=== PATIENT | female | born 1960 | race Caucasian/White ===

== ENCOUNTER 2019-04-25 11:16 | Inpatient (IN) | payer OTHER ==
[~2019-04-25] VITALS: Ht 170.2 cm; Wt 62.6 kg
--- NOTE | 2019-04-25 11:16 | NUR ---
"BIB [facility] FROM A CLINIC,CHEST PAIN/SOB AND ELEVATED BLOOD SUGAR(550)" PT AAOX4, -SOB, NAD NOTED, VSS, PENDING MD ISRAEL
[2019-04-25] MEDS ORDERED: IV NS 0.9% 1,000 ML BAG IV ONE (11:30)
[2019-04-25 11:44] LABS: BASOPHILS # (AUTO) 0.1 /CMM (0.0-0.2); BASOPHILS % (AUTO) 1.4 % (0.0-2.0); HEMATOCRIT 33 % (33-45); HEMOGLOBIN 10.7 g/dL (11.5-14.8); LYMPHOCYTES # (AUTO) 0.8 /CMM (0.8-4.8); LYMPHOCYTES % (AUTO) 8.3 % (20.0-44.0); MEAN CORPUSCULAR HGB CONC 33 g/dl (31.0-36.0); MEAN CORPUSCULAR VOLUME 98 fL (82-100); MONOCYTES # (AUTO) 0.5 /CMM (0.1-1.30); MONOCYTES % (AUTO) 5.5 % (2.0-12.0); NEUTROPHILS # (AUTO) 8.2 /CMM (1.8-8.9); NEUTROPHILS % (AUTO) 83.8 % (43.0-81.0); PLATELET COUNT (AUTO) 236 /CMM (150-450); RED BLOOD CELL COUNT(AUTO) 3.33 MIL/uL (4.0-5.2); WHITE BLOOD COUNT (AUTO) 9.8 K/uL (4.3-11.0)
[2019-04-25 11:50] LABS: APPEARANCE,URINE Clear (CLEAR); BILIRUBIN,URINE Negative (NEGATIVE); BLOOD, URINE Negative Ery/uL (NEGATIVE); COLOR,URINE Yellow (YELLOW); KETONES,URINE Trace (NEGATIVE); LEUKOCYTE ESTERASE ,URINE Small (NEGATIVE); NITRITE, URINE Negative (NEGATIVE); PROTEIN,URINE >=300 mg/dl (NEGATIVE); UGLUCOSE 500 MG/DL mg/dL (NEGATIVE); UROBILINOGEN,URINE 0.2 EU/dL (0.2)
[2019-04-25 11:51] LABS: BACTERIA,URINE Few /HPF (None Seen); HYALINE CASTS, URINE Few /LPF (None Seen); SQUAMOUS EPITHELIAL CELL,UR Few /HPF (None Seen)
[2019-04-25 11:57] LABS: CALCIUM, SERUM 9.1 mg/dL (8.5-10.1); CREATININE 7.1 mg/dL (0.6-1.3); POTASSIUM 4.7 mmol/L (3.5-5.1)
[2019-04-25 12:00] LABS: BILIRUBIN,DIRECT 0.1 mg/dL (0.0-0.2); BILIRUBIN,TOTAL 0.3 mg/dL (0.2-1.0); TOTAL PROTEIN, SERUM 7.1 g/dL (6.4-8.2)
[2019-04-25] MEDS ORDERED: INSULIN REGULAR, HUMAN 100 UNIT/ML 10 ML VIAL SQ ONE (12:30)
[2019-04-25] MEDS ORDERED: INSULIN REGULAR, HUMAN 100 UNIT/ML 10 ML VIAL ONE (12:48)
[2019-04-25] MEDS ORDERED: ASPIRIN 325 MG TABLET PO ONE (13:00)
[2019-04-25] MEDS ORDERED: NITROGLYCERIN PACKET 1 GM PACKET TD ONE (13:00)
[2019-04-25] MEDS ORDERED: LORA10TA7 PO (13:08)
[2019-04-25] MEDS ORDERED: CALC667C6 PO (13:08)
[2019-04-25] MEDS ORDERED: PANT40TA4 PO (13:08)
[2019-04-25] MEDS ORDERED: SEVE800T8 PO (13:08)
[2019-04-25] MEDS ORDERED: CHOL100040 PO (13:08)
[2019-04-25] MEDS ORDERED: AMLO5TAB4 PO (13:08)
[2019-04-25] MEDS ORDERED: ALBU18HF2 IH (13:08)
[2019-04-25] MEDS ORDERED: CLON0.1T PO (13:08)
[2019-04-25] MEDS ORDERED: MONT10TA22 PO (13:08)
[2019-04-25] MEDS ORDERED: FLUO40CA8 PO (13:08)
[2019-04-25] MEDS ORDERED: CARV25TA2 PO (13:08)
[2019-04-25] MEDS ORDERED: ATOR20TA PO (13:08)
[2019-04-25] MEDS ORDERED: ASPIRIN 325 MG TABLET ONE (13:11)
[2019-04-25] MEDS ORDERED: NITROGLYCERIN PACKET 1 GM PACKET ONE (13:11)
--- NOTE | 2019-04-25 14:14 | NUR ---
PT IS GOING TO 307-2.
--- NOTE | 2019-04-25 14:26 | NUR ---
REPORT GIVEN TO LARISA MCDERMOTT FOR CHARLENE.
[2019-04-25] MEDS ORDERED: IV 1/2NS 1000 ML 1,000 ML IV PRN (14:33)
--- NOTE | 2019-04-25 14:33 | NUR ---
MD TO MD IN PROGRESS.
[2019-04-25] MEDS ORDERED: MAG HYDROX/AL HYDROX/SIMETH 30 ML UDC PO PRN (15:00)
[2019-04-25] MEDS ORDERED: MONTELUKAST SODIUM (10MG) 10 MG TABLET PO PRN (15:00)
[2019-04-25] MEDS ORDERED: MAGNESIUM HYDROXIDE 30 ML UDC PO PRN (15:00)
[2019-04-25] MEDS ORDERED: ACETAMINOPHEN 325 MG TABLET PO PRN (15:00)
[2019-04-25] MEDS ORDERED: Z GUARD REMEDY 2 OZ OINT TP PRN (15:00)
[2019-04-25] MEDS ORDERED: ONDANSETRON HCL/PF 4 MG/2 ML VIAL IVP PRN (15:00)
[2019-04-25] MEDS ORDERED: ZOLPIDEM TARTRATE 5 MG TABLET PO PRN (15:00)
--- NOTE | 2019-04-25 15:19 | NUR ---
RT NOTE EKG ORDERED AT 1433 PT NOT IN ROOM
--- NOTE | 2019-04-25 15:30 | NUR ---
WIND PROJECT MANAGER NOTES RECEIVED PT FROM E.R. STAFF, PT IS AWAKE, ALERT AND ORIENTED, ABLE TO WALK TO BED WITH STEADY GAIT, STILL WITH COMPLAINT OF CHEST PAIN 01/16, NOT IN DISTRESS, ASSISTED TO BED, MADE COMFORTABLE, ROOM SET UP ORIENTATION PROVIDED TO PT, VERBALIZED UNDERSTANDING, CALL LIGHT PLACED WITHIN EASY REACH, ADMITTING ORDERS RECEIVED FROM DR. ZUÑIGA.
[2019-04-25] MEDS: CALCIUM ACETATE 667 MG TABLET PO SCH (16:21)
[2019-04-25] MEDS: HYDROCODONE/APAP 5/325MG 1 EACH TABLET PO PRN ×2 (16:21→20:57)
[2019-04-25] MEDS: CHOLECALCIFEROL 1,000 UNIT TABLET (VIT D3) PO SCH (16:21)
[2019-04-25] MEDS: SEVELAMER CARBONATE 800 MG TABLET PO SCH (16:21)
[2019-04-25] MEDS ORDERED: DEXTROSE 50%-WATER 50 ML DISP.SYRIN IV PRN (16:30)
[2019-04-25] MEDS ORDERED: *INSULIN REGULAR(HUMULIN R)HUM 100 UNIT/ML VIAL SQ PRN (16:30)
[2019-04-25] MEDS: BLOOD SUGAR DIAGNOSTIC 1 EACH STRIP IN SCH ×2 (17:15→21:43)
--- NOTE | 2019-04-25 18:06 | NUR ---
SENIOR STAFF PSYCHOLOGIST NOTES PT IN BED, ALERT AND ORIENTED, PAIN MEDS GIVEN FOR PAIN MANAGEMENT, NOT IN DISTRESS, ATE DINNER, WITH GOOD APPETITE, PLEASANT AND COOPERATIVE WITH CARE, SEEN AND EXAMINED BY DR. ZUÑIGA, PLAN OF CARE DISCUSSED WITH PT. VERBALIZED UNDERSTANDING, CALL LIGHT WITHIN REACH, ALL NEEDS ATTENDED.
[2019-04-25] MEDS: INSULIN REGULAR, HUMAN 100 UNIT/ML 3 ML VIAL SQ PRN (18:27)
--- NOTE | 2019-04-25 19:15 | NUR ---
SOLE STITCHER HAND NOTES RECEIVED RESTING COMFORTABLY ON BED,A/O X4,BREATHING NORMAL,O2 IN USED TO KEEP O2 SAT ABOVE 90%.IVF NS AT 75ML/HR RATE IN PROGRESS ON RIGHT FORE ARM,SITE PATENT.NOTED [facility] FOR HD ACCESS,STRONG BRUIT NOTED.SR -70 ON TELE MONITOR.APPEARS ANXIOUS,ASKING FOR ANXIETY MEDS,NO ORDERS.WILL FOLLOW UP WITH .KACEY NOT DUE YET, JUST MEDICATED THREE HOURS AGO.CALL LIGHT IN REACH,NEEDS ANTICIPATED.
[2019-04-25] MEDS ORDERED: ALBUTEROL FS 2.5 MG/0.5 ML VIAL.NEB NEB PRN (19:30)
[2019-04-25 20:00] VITALS: BP 141/60
--- NOTE | 2019-04-25 20:57 | NUR ---
CHIEF DIGITAL OFFICER NOTES HAVING CHEST PAIN,7'10 ON PAIN SCALE.MEDICATED WITH NORCO 5/325MG,1 TAB PO ORDERED
--- NOTE | 2019-04-25 21:30 | NUR ---
BATTERY TEST ENGINEER NOTES ACCU-CHECK BLOOD SUGAR CHECK 82MG/DL,NO INSULIN COVERAGE.SNACKS PROVIDED AT BEDSIDE WITH APPLE JUICE
[2019-04-25] MEDS: ATORVASTATIN 10 MG TABLET PO SCH (21:44)
[2019-04-26] VITALS (8 sets, daily range): BP systolic 138–170; BP diastolic 65–71
--- NOTE | 2019-04-26 01:00 | NUR ---
COP BREAKER NOTES SLEEPING,PAIN MANAGEMENT EFFECTIVE.
--- NOTE | 2019-04-26 03:43 | NUR ---
MDS COORDINATOR NOTES AWAKE,FEELING ANXIOUS DUE TO HER ROOM MATE WHO'S MOANING IN PAIN WELL.MEDICATED WITH NORCO 5/325MG,1 TAB PO ORDERED.
[2019-04-26] MEDS: HYDROCODONE/APAP 5/325MG 1 EACH TABLET PO PRN ×2 (03:50→19:13)
[2019-04-26] MEDS: BLOOD SUGAR DIAGNOSTIC 1 EACH STRIP IN SCH ×4 (05:23→21:08)
--- NOTE | 2019-04-26 05:35 | NUR ---
STRATIGRAPHER NOTES ACCU-CHECK BLOOD SUGAR CHECK 125,NO INSULIN COVERAGE.
--- NOTE | 2019-04-26 06:11 | NUR ---
UPSET OPERATOR NOTES ON BED SLEEPING,PAIN MANAGEMENT EFFECTIVE,BP HELD FOR A MOMENT,SYSTOLIC BP ELEVATED.FOR HD TODAY.AMBULATORY,CALL LIGHT IN REACH,NEEDS ATTENDED.WILL ENDORSE TO DAY NURSE FOR CHARLENE.
--- NOTE | 2019-04-26 07:10 | NUR ---
MS RN NOTES PATIENT IN BED, ALERT ORIENTED X 4. NO ACUTE DISTRESS NOTED, BREATHING UNLABORED. NO SOB NOTED. IV ACCESS PATENT AND INTACT, NO REDNESS OR SWELLING NOTED. SAFETY MEASURES IN PLACE. CALL LIGHT WITHIN REACH. WILL CONTINUE TO MONITOR ACCORDINGLY.
[2019-04-26 07:17] LABS: BASOPHILS # (AUTO) 0.1 /CMM (0.0-0.2); BASOPHILS % (AUTO) 0.9 % (0.0-2.0); EOSINOPHILS % (AUTO) 4.1 % (0.0-6.0); HEMATOCRIT 26 % (33-45); HEMOGLOBIN 8.7 g/dL (11.5-14.8); LYMPHOCYTES # (AUTO) 1.5 /CMM (0.8-4.8); LYMPHOCYTES % (AUTO) 18.3 % (20.0-44.0); MEAN CORPUSCULAR HGB CONC 34 g/dl (31.0-36.0); MEAN CORPUSCULAR VOLUME 95 fL (82-100); MONOCYTES # (AUTO) 0.7 /CMM (0.1-1.30); MONOCYTES % (AUTO) 8.8 % (2.0-12.0); NEUTROPHILS # (AUTO) 5.6 /CMM (1.8-8.9); NEUTROPHILS % (AUTO) 67.9 % (43.0-81.0); PLATELET COUNT (AUTO) 228 /CMM (150-450); RED BLOOD CELL COUNT(AUTO) 2.74 MIL/uL (4.0-5.2); WHITE BLOOD COUNT (AUTO) 8.3 K/uL (4.3-11.0)
[2019-04-26 07:49] LABS: THYROID STIMULATING HORMONE 1.323 uIU/mL (0.358-3.74)
[2019-04-26 08:13] LABS: ALBUMIN 3.1 g/dL (3.4-5.0); BILIRUBIN,TOTAL 0.3 mg/dL (0.2-1.0); CALCIUM, SERUM 8.1 mg/dL (8.5-10.1); MAGNESIUM 1.8 mg/dL (1.8-2.4); PHOSPHORUS 4.1 mg/dL (2.5-4.9); POTASSIUM 5.5 mmol/L (3.5-5.1); TOTAL PROTEIN, SERUM 5.5 g/dL (6.4-8.2)
[2019-04-26 08:33] LABS: CREATININE 8.1 mg/dL (0.6-1.3)
[2019-04-26] MEDS: SEVELAMER CARBONATE 800 MG TABLET PO SCH ×2 (08:40→17:50)
[2019-04-26] MEDS: CALCIUM ACETATE 667 MG TABLET PO SCH ×3 (08:40→17:50)
[2019-04-26] MEDS: PANTOPRAZOLE 40 MG TABLET.DR PO SCH (08:40)
[2019-04-26] MEDS: CHOLECALCIFEROL 1,000 UNIT TABLET (VIT D3) PO SCH (08:41)
[2019-04-26] MEDS: FLUOXETINE HCL 20 MG CAPSULE PO SCH (08:41)
[2019-04-26] MEDS: LORATADINE 10 MG TABLET PO SCH (08:41)
[2019-04-26] MEDS: AMLODIPINE BESYLATE 5 MG TABLET PO SCH (08:43)
[2019-04-26] MEDS: CARVEDILOL 12.5 MG TABLET PO SCH ×2 (08:43→21:08)
[2019-04-26] MEDS: CLONIDINE HCL 0.1 MG TABLET PO SCH (08:43)
[2019-04-26] MEDS ORDERED: CARVEDILOL 25 MG TABLET PO SCH (09:00)
[2019-04-26] MEDS ORDERED: IOHEXOL-350 100 ML VIAL IV ONE (09:45)
[2019-04-26] MEDS ORDERED: METOPROLOL TARTRATE INJ 5 MG/5 ML AMPUL ONE ×7 (09:45→11:13)
[2019-04-26] MEDS ORDERED: CT SWABBABLE VALVE TRANS SET 1 EA INFUS.SET MC ONE (09:47)
[2019-04-26] MEDS ORDERED: IV NS 0.9% 250 ML IV ONE (09:47)
[2019-04-26] MEDS: INSULIN REGULAR, HUMAN 100 UNIT/ML 3 ML VIAL SQ PRN (12:48)
--- NOTE | 2019-04-26 18:55 | NUR ---
MS RN NOTES PATIENT IN BED, ALERT ORIENTED X 4. NO ACUTE DISTRESS NOTED, BREATHING UNLABORED. NO SOB NOTED. IV ACCESS PATENT AND INTACT, NO REDNESS OR SWELLING NOTED. DUE MEDICATIONS, NO ASE NOTED.NEEDS ATTENDED AND ANTICIPATED. KEPT CLEAN DRY AND COMFORTABLE. SAFETY MEASURES IN PLACE. CALL LIGHT WITHIN REACH. DIALYSIS DONE, 2 LITERS OUT , WITH STABLE VITALS SIGNS. WILL ENDORSE TO NIGHT NURSE FOR CONTINUITY OF CARE.
--- NOTE | 2019-04-26 19:00 | NUR ---
MS RN NOTES RECEIVED ON BED S/P HEMODIALYSIS TREATMENT,2LITERS OUT,TOLERATED WELL.LEFT UPPER ARM AV FISTULA WITH DRESSING INTACT AND DRY,WITH GOOD BRUIT NOTED.SALINE LOCK RIGHT FORE ARM INTACT AND PATENT.C/O GENERALIZED PAIN AT THIS TIME,6/10 ON PAIN SCALE,WILL MEDICATE.CALL LIGHT IN REACH,NEEDS ANTICIPATED.
--- NOTE | 2019-04-26 19:13 | NUR ---
MS RN NOTES C/O GENERALIZED PAIN 6/10 ON PAIN SCALE,NORCO 5/325MG,1 TAB PO GIVEN ORDERED.
[2019-04-26] MEDS: ATORVASTATIN 10 MG TABLET PO SCH (21:08)
--- NOTE | 2019-04-26 21:15 | NUR ---
MS RN NOTES ACCU-CHECK BLOOD SUGAR CHECK 244,COVERED WITH HUMULIN R 4 UNITS PER SLIDING SCALE.SNACKS PROVIDED AT BEDSIDE.
--- NOTE | 2019-04-26 23:00 | NUR ---
MS RN NOTES SLEEPING AT THIS TIME,KEPT WARM AND COMFORTABLE.
--- NOTE | 2019-04-27 05:15 | NUR ---
MS RN NOTES ACCU-CHECK BLOOD SUGAR CHECK 228,WILL COVER WITH 8 UNITS HUMULIN R PER SLIDING SCALE.
[2019-04-27] MEDS: BLOOD SUGAR DIAGNOSTIC 1 EACH STRIP IN SCH ×2 (05:32→12:26)
[2019-04-27] MEDS: INSULIN REGULAR, HUMAN 100 UNIT/ML 3 ML VIAL SQ PRN ×2 (05:42→12:25)
--- NOTE | 2019-04-27 05:42 | NUR ---
MS RN NOTES BLOOD SUGAR OF 228,COVERED WITH HUMULIN R 8 UNITS PER SLIDING SCALE.
--- NOTE | 2019-04-27 06:18 | NUR ---
MS RN NOTES NO SIGNIFICANT CHANGE IN STATUS.SLEPT WELL WITH NORCO.GENERALIZED PAIN SUBSIDED.BLOOD SUGAR REMAINS ELEVATED,MANAGE WITH HUMULIN,IN NO ACUTE DISTRESS.WILL ENDORSE TO DAY NURSE FOR CHARLENE.
[2019-04-27] MEDS: HYDROCODONE/APAP 5/325MG 1 EACH TABLET PO PRN (06:36)
--- NOTE | 2019-04-27 06:36 | NUR ---
MS RN NOTES AWAKE,RESTLESS,C/O GENERALIZED PAIN 7/10 ON PAIN SCALE,MEDICATED WITH NORCO 5/325,1 TAB PO ORDERED.
--- NOTE | 2019-04-27 07:16 | NUR ---
MS RN NOTES PATIENT IN BED EYES CLOSED EASY TO AROUSE, RESPOND TO VERBAL AND TACTILE STIMULI. NO ACUTE DISTRESS NOTED, BREATHING UNLABORED. NO SOB NOTED. IV ACCESS PATENT AND INTACT, NO REDNESS OR SWELLING NOTED. SAFETY MEASURES IN PLACE. CALL LIGHT WITHIN REACH. WILL CONTINUE TO MONITOR ACCORDINGLY.
[2019-04-27 08:00] VITALS: BP 171/74
[2019-04-27] MEDS: CLONIDINE HCL 0.1 MG TABLET PO SCH (08:19)
[2019-04-27] MEDS: LORATADINE 10 MG TABLET PO SCH (08:19)
[2019-04-27] MEDS: CHOLECALCIFEROL 1,000 UNIT TABLET (VIT D3) PO SCH (08:19)
[2019-04-27] MEDS: PANTOPRAZOLE 40 MG TABLET.DR PO SCH (08:19)
[2019-04-27] MEDS: FLUOXETINE HCL 20 MG CAPSULE PO SCH (08:19)
[2019-04-27] MEDS: CALCIUM ACETATE 667 MG TABLET PO SCH ×2 (08:19→12:25)
[2019-04-27] MEDS: SEVELAMER CARBONATE 800 MG TABLET PO SCH (08:19)
[2019-04-27 08:20] VITALS: BP 164/70
[2019-04-27] MEDS: AMLODIPINE BESYLATE 5 MG TABLET PO SCH (08:20)
[2019-04-27] MEDS: CARVEDILOL 12.5 MG TABLET PO SCH (08:20)
--- NOTE | 2019-04-27 08:45 | NUR ---
MS RN NOTES PATIENT SEEN AND EVALUATED BY DR LICHA ZUÑIGA WITH NEW ORDERS MADE, NOTED AND CARRIED OUT.
[2019-04-27] MEDS ORDERED: OMEP20CA11 PO (08:46)
--- NOTE | 2019-04-27 14:30 | NUR ---
MS RN NOTES PATIENT DISCHARGE HOME WITH STABLE VITAL SIGNS. NO ACUTE DISTRESS. BREATHING UNLABORED. NO SOB NOTED. DENIED ANY PAIN. DISCHARGE INSTRUCTIONS GIVEN TO THE PATIENT, INCLUDING FOLLOW UP WITH PRIMARY DOCTOR, VERBALIZED UNDERSTANDING. ALL BELONGINGS ACCOUNTED FOR. NEEDS ATTENDED AND ANTICIPATED. SKIN IS INTACT. ASSISTED TO THE LOBBY, PICKED UP VIA PRIVATE CAR IN STABLE CONDITION ACCOMPANIED BY FAMILY MEMBER.
--- NOTE | 2019-04-27 14:30 | NUR ---
ADDENDUM: PATIENT ALERT ORIENTED X 4.
== END 2019-04-27 14:30 | disposition home or self-care (01) | DRG 198 ==
LOC: ER 11:18 → TELE 14:19 → MED 04-26 08:10
PROVIDERS: ADMIT Internal Medicine; ATTEND Internal Medicine
PROC: 5A1D70Z Performance of Urinary Filtration, Intermittent, Less than 6 Hours Per Day (ICD-10-PCS; principal; 2019-04-26)
DX: I25.110 Atherosclerotic heart disease of native coronary artery with unstable angina pectoris (principal); I13.2 Hypertensive heart and chronic kidney disease with heart failure and with stage 5 chronic kidney disease, or end stage renal disease; E11.22 Type 2 diabetes mellitus with diabetic chronic kidney disease; N18.6 End stage renal disease; E11.65 Type 2 diabetes mellitus with hyperglycemia; E87.1 Hypo-osmolality and hyponatremia; D63.8 Anemia in other chronic diseases classified elsewhere; Z79.51 Long term (current) use of inhaled steroids; I50.9 Heart failure, unspecified; Z79.899 Other long term (current) drug therapy; Z99.2 Dependence on renal dialysis; J44.9 Chronic obstructive pulmonary disease, unspecified; E87.5 Hyperkalemia; E21.1 Secondary hyperparathyroidism, not elsewhere classified; F17.200 Nicotine dependence, unspecified, uncomplicated; E89.0 Postprocedural hypothyroidism
CPT/HCPCS: 36415; 71045-TC; 75574; 80048-TC; 80053-TC; 80061-TC; 80076-TC; 81000-TC; 82962-TC; 83735-TC; 84100-TC; 84443-TC; 84484-TC; 85025-TC; 86706; 87081-TC; 87340; 93307-TC; G0378; J1815; J3490; J7030; J7040; J7050; Q9967